=== PATIENT | female | born 1960 | race Caucasian/White ===

== ENCOUNTER 2019-08-30 21:20 | Inpatient (IN) | payer OTHER ==
[~2019-08-30] VITALS: Ht 139.7 cm; Wt 63.9 kg
[~2019-08-30 21:20] MED LIST: AUGM PO; NOCURR
[2019-08-30] MEDS ORDERED: TRI115O TP (21:42)
[2019-08-30] MEDS ORDERED: LEVO50 PO (21:42)
[2019-08-30] MEDS ORDERED: ATOR40TA28 PO (21:42)
[2019-08-30] MEDS ORDERED: AMLO5TAB9 PO (21:42)
[2019-08-30] MEDS ORDERED: TIOT185 IH (21:42)
[2019-08-30 23:19] LABS: BASOPHILS % (AUTO) 0.7 % (0.0-2.0); EOSINOPHILS % (AUTO) 3.8 % (1.0-6.0); HEMATOCRIT 54.5 % (36-46); LYMPHOCYTES % (AUTO) 19.4 % (22.0-44.0); MEAN CORPUSCULAR HEMOGLOBIN 33.1 pg (26.0-34.0); MEAN CORPUSCULAR HGB CONC 34.8 G/dL (31.0-37.0); MEAN CORPUSCULAR VOLUME 95 fL (80-100); MONOCYTES # (AUTO) 0.9 K/uL (0.1-1.0); MONOCYTES % (AUTO) 8.7 % (2.0-9.0); NEUTROPHILS # (AUTO) 6.9 K/uL (1.8-7.7); NEUTROPHILS % (AUTO) 67.4 % (40.0-70.0); RED BLOOD CELL COUNT(AUTO) 5.72 MIL/uL (4.00-5.20); RED CELL DISTRIBUTION WIDTH 14.2 % (11.5-14.5)
[2019-08-30 23:25] LABS: CREATININE 1.12 mg/dL (0.60-1.30); POTASSIUM 3.8 mmol/L (3.5-5.1)
[2019-08-30 23:29] LABS: PLATELET COUNT (AUTO) 225 K/uL (150-450); PLATELET MORPHOLOGY COMMENT GIANT PLTS PRESENT
[2019-08-30 23:30] LABS: ALBUMIN 3.8 g/dL (3.4-5.0); BILIRUBIN,TOTAL 0.7 mg/dL (0.1-1.0); TOTAL PROTEIN, SERUM 7.6 g/dL (6.4-8.2)
[2019-08-30] MEDS ORDERED: ONDANSETRON HCL 4 MG/2 ML VIAL IVP ONE (23:30)
[2019-08-30] MEDS ORDERED: MECLIZINE HCL 25 MG TABLET PO ONE (23:30)
[2019-08-30 23:36] LABS: APPEARANCE,URINE CLOUDY (CLEAR); BILIRUBIN,URINE NEGATIVE (NEGATIVE); GLUCOSE, URINE (UA) >=1000 mg/dL (NEGATIVE); KETONES,URINE NEGATIVE (NEGATIVE); LEUKOCYTE ESTERASE ,URINE MODERATE (NEGATIVE); NITRATE,URINE NEGATIVE (NEGATIVE); OCCULT BLOOD,URINE NEGATIVE (NEGATIVE); PH,URINE 6.5 (5.0-8.0); PROTEIN,URINE POS 1+ (NEGATIVE)
[2019-08-30 23:42] LABS: BACTERIA,URINE Many /HPF (None Seen); RBC,URINE 0-2 /HPF (0-2); SQUAMOUS EPITHELIAL CELL,UR Rare /LPF (None Seen); WBC,URINE 26-50 /HPF (0-5)
[2019-08-31] MEDS ORDERED: CefTRIAXone 1 GM/DEXTROSE 50 ML IV ONE
[2019-08-31] MEDS ORDERED: ONDANSETRON HCL 4 MG/2 ML VIAL IVP PRN ×2 (01:30→11:45)
[2019-08-31] MEDS ORDERED: 0.9% SODIUM CHLORIDE 10 ML SYRINGE IVP PRN (01:30)
[2019-08-31] MEDS ORDERED: ACETAMINOPHEN 325 MG TABLET PO PRN ×2 (01:30→11:45)
[2019-08-31 04:55] VITALS: BP 150/85
[2019-08-31] MEDS ORDERED: INFLUENZA VIRUS VACCINE QVS 2019-20 (3YR+)/PF 60 MCG/0.5 ML SYRINGE IM ONE (05:00)
[2019-08-31] MEDS ORDERED: PNEUMOCOCCAL VACCINE POLYVALENT 0.5 ML VIAL [PPSV23] IM ONE (05:00)
[2019-08-31 07:36] VITALS: BP 147/84
[2019-08-31] MEDS ORDERED: MORPHINE SULFATE 2 MG/ML SYRINGE IVP PRN (11:45)
[2019-08-31] MEDS ORDERED: HYDROCODONE/ACETAMINOPHEN 5-325 MG TABLET PO PRN (11:45)
[2019-08-31] MEDS ORDERED: MECLIZINE HCL 25 MG TABLET PO PRN (11:45)
[2019-08-31] MEDS ORDERED: BISACODYL 10 MG RECTAL RECTAL SUPPOSITORY PR PRN (11:45)
[2019-08-31] MEDS ORDERED: ZOLPIDEM TARTRATE 5 MG TABLET PO PRN (11:45)
[2019-08-31] MEDS ORDERED: MAGNESIUM HYDROXIDE SUSPENSION 30 ML UDCUP PO PRN (11:45)
[2019-08-31] MEDS: AmLODIPine BESYLATE 5 MG TABLET PO SCH (12:08)
[2019-08-31 12:12] VITALS: BP 146/85
[2019-08-31 16:22] VITALS: BP 145/80
[2019-08-31] MEDS: MECLIZINE HCL 25 MG TABLET PO SCH ×2 (16:31→20:38)
[2019-08-31] MEDS: HEPARIN SODIUM,PORCINE 5,000 UNITS/ML VIAL SQ SCH ×2 (16:31→23:06)
[2019-08-31 19:29] VITALS: BP 146/88
[2019-08-31] MEDS: ATORVASTATIN CALCIUM 40 MG TABLET PO SCH (20:37)
[2019-08-31] MEDS: DOCUSATE SODIUM 100 MG CAPSULE PO SCH (20:38)
[2019-08-31] MEDS: CefTRIAXone 1 GM/DEXTROSE 50 ML IV SCH (21:01)
[2019-09-01] VITALS (7 sets, daily range): BP systolic 121–153; BP diastolic 72–93
[2019-09-01] MEDS: LEVOTHYROXINE SODIUM 50 MCG TABLET PO SCH (05:29)
[2019-09-01] MEDS: TIOTROPIUM BROMIDE 18 MCG/INH HANDIHALER [5] IH SCH (09:00)
[2019-09-01] MEDS: DOCUSATE SODIUM 100 MG CAPSULE PO SCH ×2 (09:00→20:51)
[2019-09-01] MEDS: MECLIZINE HCL 25 MG TABLET PO SCH ×3 (09:24→20:51)
[2019-09-01] MEDS: HEPARIN SODIUM,PORCINE 5,000 UNITS/ML VIAL SQ SCH ×3 (09:24→23:16)
[2019-09-01] MEDS: AmLODIPine BESYLATE 5 MG TABLET PO SCH (09:24)
[2019-09-01] MEDS: PANTOPRAZOLE SODIUM 40 MG DR TABLET PO SCH (09:24)
[2019-09-01] MEDS: ATORVASTATIN CALCIUM 40 MG TABLET PO SCH (20:52)
[2019-09-01] MEDS ORDERED: SODIUM CHLORIDE 0.9% 250 ML IV ONE (23:06)
[2019-09-01] MEDS: CefTRIAXone 1 GM/DEXTROSE 50 ML IV SCH (23:12)
[2019-09-02 04:15] VITALS: BP 152/75
[2019-09-02] MEDS: LEVOTHYROXINE SODIUM 50 MCG TABLET PO SCH (05:51)
[2019-09-02 07:25] VITALS: BP 160/80
[2019-09-02] MEDS: TIOTROPIUM BROMIDE 18 MCG/INH HANDIHALER [5] IH SCH (08:40)
[2019-09-02] MEDS: HEPARIN SODIUM,PORCINE 5,000 UNITS/ML VIAL SQ SCH ×2 (08:40→16:00)
[2019-09-02] MEDS: MECLIZINE HCL 25 MG TABLET PO SCH ×2 (08:41→16:00)
[2019-09-02] MEDS: AmLODIPine BESYLATE 5 MG TABLET PO SCH (08:41)
[2019-09-02] MEDS: PANTOPRAZOLE SODIUM 40 MG DR TABLET PO SCH (08:41)
[2019-09-02] MEDS: DOCUSATE SODIUM 100 MG CAPSULE PO SCH (08:41)
[2019-09-02] MEDS ORDERED: GADOBUTROL 1 MMOL/ML 10 ML VIAL IVP ONE (10:13)
[2019-09-02 11:27] VITALS: BP 137/71
[2019-09-02] MEDS ORDERED: MECL-111 PO (12:19)
[2019-09-02] MEDS ORDERED: AMLO5TAB9 PO (12:19)
[2019-09-02] MEDS ORDERED: CEPH-582 PO (12:25)
== END 2019-09-02 17:55 | disposition home or self-care (01) | DRG 111 ==
LOC: EMS 21:21 → 5N 08-31 02:19 → UNDODISIN 09-01 14:05 → 4E 09-01 14:08
PROVIDERS: ADMIT Internal Medicine; ATTEND Internal Medicine
DX: H81.10 Benign paroxysmal vertigo, unspecified ear (principal); E03.9 Hypothyroidism, unspecified; N39.0 Urinary tract infection, site not specified; E78.5 Hyperlipidemia, unspecified; J45.909 Unspecified asthma, uncomplicated; G25.81 Restless legs syndrome; Z87.891 Personal history of nicotine dependence; Z79.899 Other long term (current) drug therapy
CPT/HCPCS: 70450; 70553; 87086; 93005; 93880; 96365; 96375; 97116; 97162; A9585; G0378; J0696; J1644; J2405; J7050

== ENCOUNTER 2020-10-27 15:02 | Emergency (ER) | payer OTHER ==
[~2020-10-27] VITALS: Ht 139.7 cm; Wt 59.1 kg
[~2020-10-27 15:02] MED LIST changes: +AMLO-257 PO; +ATOR40TA28 PO; -AUGM PO; +CEPH-582 PO; +LEVO50 PO; +MECL-160 PO; -NOCURR; +TIOT185 IH; +TRI115O TP
[2020-10-27] MEDS ORDERED: SODIUM CHLORIDE 0.9% 1,000 ML IV ONE ×2 (15:45→16:45)
[2020-10-27] MEDS ORDERED: MORPHINE SULFATE 4 MG/ML SYRINGE IVP ONE ×2 (15:45→19:00)
[2020-10-27] MEDS ORDERED: ONDANSETRON HCL 4 MG/2 ML VIAL IVP ONE (15:45)
[2020-10-27 16:25] LABS: BASOPHILS % (AUTO) 0.6 % (0.0-2.0); EOSINOPHILS % (AUTO) 2.8 % (1.0-6.0); LYMPHOCYTES # (AUTO) 1.9 K/uL (1.0-4.8); LYMPHOCYTES % (AUTO) 15.4 % (22.0-44.0); MEAN CORPUSCULAR HEMOGLOBIN 31.8 pg (26.0-34.0); MEAN CORPUSCULAR HGB CONC 33.9 G/dL (31.0-37.0); MEAN CORPUSCULAR VOLUME 94 fL (80-100); MONOCYTES # (AUTO) 0.9 K/uL (0.1-1.0); MONOCYTES % (AUTO) 7.3 % (2.0-9.0); NEUTROPHILS # (AUTO) 9.3 K/uL (1.8-7.7); NEUTROPHILS % (AUTO) 73.9 % (40.0-70.0); PLATELET COUNT (AUTO) 236 K/uL (150-450); RED BLOOD CELL COUNT(AUTO) 5.99 MIL/uL (4.00-5.20); RED CELL DISTRIBUTION WIDTH 13.5 % (11.5-14.5)
[2020-10-27 16:28] LABS: HEMATOCRIT 56.3 % (36-46)
[2020-10-27 16:30] LABS: HEMOGLOBIN 19.1 g/dL (12.0-16.0)
[2020-10-27 16:33] LABS: CALCIUM, TOTAL 9.4 mg/dL (8.8-10.5); POTASSIUM 4.2 mmol/L (3.5-5.1)
[2020-10-27 16:35] LABS: INR 1.1 (0.9-1.1); PROTHROMBIN TIME 11.3 SEC (9.4-11.6)
[2020-10-27 16:42] LABS: LACTIC ACID 1.7 mmol/L (0.4-2.0)
[2020-10-27 16:48] LABS: ALBUMIN 3.8 g/dL (3.4-5.0); BILIRUBIN,TOTAL 0.6 mg/dL (0.1-1.0); TOTAL PROTEIN, SERUM 7.4 g/dL (6.4-8.2)
[2020-10-27] MEDS ORDERED: IOVERSOL 350 MG/ML 100 ML VIAL ONE (16:49)
[2020-10-27] MEDS ORDERED: SODIUM CHLORIDE 0.9% 100 ML ONE (16:49)
[2020-10-27 18:59] LABS: BASOPHILS % (AUTO) 0.8 % (0.0-2.0); EOSINOPHILS % (AUTO) 2.6 % (1.0-6.0); HEMATOCRIT 52.7 % (36-46); HEMOGLOBIN 18.1 g/dL (12.0-16.0); LYMPHOCYTES % (AUTO) 16.1 % (22.0-44.0); MEAN CORPUSCULAR HEMOGLOBIN 32.3 pg (26.0-34.0); MEAN CORPUSCULAR HGB CONC 34.4 G/dL (31.0-37.0); MEAN CORPUSCULAR VOLUME 94 fL (80-100); NEUTROPHILS # (AUTO) 8.9 K/uL (1.8-7.7); NEUTROPHILS % (AUTO) 72.5 % (40.0-70.0); PLATELET COUNT (AUTO) 223 K/uL (150-450); RED BLOOD CELL COUNT(AUTO) 5.61 MIL/uL (4.00-5.20); RED CELL DISTRIBUTION WIDTH 13.4 % (11.5-14.5)
[2020-10-27 19:05] LABS: APPEARANCE,URINE CLEAR (CLEAR); BILIRUBIN,URINE NEGATIVE (NEGATIVE); GLUCOSE, URINE (UA) 100 mg/dL (NEGATIVE); KETONES,URINE TRACE mg/dL (NEGATIVE); LEUKOCYTE ESTERASE ,URINE NEGATIVE (NEGATIVE); NITRATE,URINE NEGATIVE (NEGATIVE); OCCULT BLOOD,URINE NEGATIVE (NEGATIVE); PROTEIN,URINE SEE CONFIRM (NEGATIVE); UROBILINOGEN,URINE 0.2 mg/dL (<=1.0)
[2020-10-27 19:09] LABS: SULFOSALICYLIC ACID,URINE 1+ (Negative)
[2020-10-27 19:10] LABS: BACTERIA,URINE None Seen /HPF (None Seen); RBC,URINE None Seen /HPF (0-2); SQUAMOUS EPITHELIAL CELL,UR Many /LPF (None Seen); WBC,URINE 0-2 /HPF (0-5)
[2020-10-27] MEDS ORDERED: KETOROLAC TROMETHAMINE 30 MG/ML VIAL IVP ONE (20:00)
[2020-10-27 21:00] VITALS: BP 150/105
== END 2020-10-27 21:45 | disposition home or self-care (01) ==
LOC: EMS 15:06
DX: R10.32 Left lower quadrant pain (principal); F17.210 Nicotine dependence, cigarettes, uncomplicated; Z79.899 Other long term (current) drug therapy
CPT/HCPCS: 36415; 74177; 80053; 81001; 83605; 83690; 84484; 85025; 85610; 96361; 96374; 96375; 96376; 99285; J1885; J2270; J2405; J7030; J7050; Q9967

== ENCOUNTER 2021-06-01 00:57 | Emergency (ER) | payer OTHER ==
[~2021-06-01] VITALS: Ht 139.7 cm; Wt 63.6 kg
[2021-06-01 04:00] VITALS: BP 136/94
[2021-06-01] MEDS ORDERED: DiphenhydrAMINE HCL 25 MG CAPSULE PO ONE (04:15)
== END 2021-06-01 04:39 | disposition home or self-care (01) ==
LOC: EDUNIT# 00:57 → EMS 00:58
DX: B35.4 Tinea corporis (principal); F17.210 Nicotine dependence, cigarettes, uncomplicated; I10 Essential (primary) hypertension; F12.90 Cannabis use, unspecified, uncomplicated; Z79.899 Other long term (current) drug therapy
CPT/HCPCS: 99282; Z7502; Z7610

== ENCOUNTER 2021-10-22 06:51 | Emergency (ER) | payer OTHER ==
[~2021-10-22] VITALS: Ht 139.7 cm; Wt 59.1 kg
[2021-10-22 06:55] VITALS: BP 160/94
[2021-10-22] MEDS ORDERED: CLOTRIMAZOLE 1% 15 GM CREAM TP ONE (07:30)
[2021-10-22] MEDS ORDERED: DiphenhydrAMINE HCL 25 MG CAPSULE PO ONE (07:45)
[2021-10-22] MEDS ORDERED: PERMETHRIN 5% 60 GM CREAM TP ONE (07:45)
[2021-10-22] MEDS ORDERED: FAMOTIDINE 20 MG TABLET PO ONE (07:45)
== END 2021-10-22 08:27 | disposition home or self-care (01) ==
LOC: EMS 06:55
DX: B35.4 Tinea corporis (principal); B86 Scabies; I10 Essential (primary) hypertension; F12.90 Cannabis use, unspecified, uncomplicated; F17.290 Nicotine dependence, other tobacco product, uncomplicated; Z79.899 Other long term (current) drug therapy
CPT/HCPCS: 99284; Z7502; Z7610

== ENCOUNTER 2022-09-23 14:46 | Emergency (ER) | payer OTHER ==
[~2022-09-23] VITALS: Ht 139.7 cm; Wt 59.1 kg
[2022-09-23 18:15] VITALS: BP 150/97
[2022-09-23] MEDS ORDERED: HYDROCODONE/ACETAMINOPHEN 5-325 MG TABLET PO ONE (18:45)
[2022-09-23] MEDS ORDERED: KETOROLAC TROMETHAMINE 60 MG/2 ML VIAL IM ONE (18:45)
== END 2022-09-23 19:55 | disposition home or self-care (01) ==
LOC: EMS 14:54
DX: T14.8XXA Other injury of unspecified body region, initial encounter (principal); S20.219A Contusion of unspecified front wall of thorax, initial encounter; E11.9 Type 2 diabetes mellitus without complications; I10 Essential (primary) hypertension; F17.210 Nicotine dependence, cigarettes, uncomplicated; F12.90 Cannabis use, unspecified, uncomplicated; W11.XXXA Fall on and from ladder, initial encounter; Y93.89 Activity, other specified; Y92.89 Other specified places as the place of occurrence of the external cause; Y99.8 Other external cause status
CPT/HCPCS: 99284; 70450; 82962; 71250; 72125; 93005; 96372; J1885

== ENCOUNTER 2022-10-19 11:41 | Emergency (ER) | payer OTHER ==
[~2022-10-19] VITALS: Ht 139.7 cm; Wt 52.3 kg
[2022-10-19] MEDS ORDERED: BLOOD PRESSURE MED PO (11:52)
[2022-10-19] MEDS ORDERED: METF-1211 PO (11:52)
[2022-10-19 11:53] VITALS: BP 172/105
[2022-10-19 12:07] LABS: COVID AG,FIA SOURCE NASAL SWAB
[2022-10-19 12:41] LABS: INFLUENZA TYPE B NEGATIVE FOR TYPE B (NEGATIVE)
[2022-10-19 12:47] LABS: INFLUENZA TYPE A POSITIVE FOR TYPE A (NEGATIVE)
== END 2022-10-19 13:41 | disposition left against medical advice (07) ==
LOC: EMS 12:02
DX: R05.9 Cough, unspecified (principal); R09.89 Other specified symptoms and signs involving the circulatory and respiratory systems; Z20.822 Contact with and (suspected) exposure to COVID-19; Z53.21 Procedure and treatment not carried out due to patient leaving prior to being seen by health care provider
CPT/HCPCS: 87804

== ENCOUNTER 2022-10-20 23:44 | Emergency (ER) | payer OTHER ==
[~2022-10-20] VITALS: Ht 139.7 cm; Wt 57.9 kg
[~2022-10-20 23:44] MED LIST changes: -AMLO-257 PO; -ATOR40TA28 PO; +BLOOD PRESSURE MED PO; -CEPH-582 PO; -LEVO50 PO; -MECL-160 PO; +METF-1211 PO; -TIOT185 IH; -TRI115O TP
[2022-10-21] MEDS ORDERED: ACETAMINOPHEN 500 MG TABLET PO ONE (02:15)
[2022-10-21 02:41] LABS: COVID AG,FIA SOURCE NASAL SWAB
[2022-10-21 02:48] LABS: BASOPHILS % (AUTO) 0.3 % (0.0-2.0); EOSINOPHILS % (AUTO) 0.7 % (1.0-6.0); HEMATOCRIT 44.6 % (36-46); HEMOGLOBIN 15.1 g/dL (12.0-16.0); LYMPHOCYTES # (AUTO) 1.3 K/uL (1.0-4.8); LYMPHOCYTES % (AUTO) 10.7 % (22.0-44.0); MEAN CORPUSCULAR HEMOGLOBIN 31.1 pg (26.0-34.0); MEAN CORPUSCULAR HGB CONC 33.8 G/dL (31.0-37.0); MEAN CORPUSCULAR VOLUME 92 fL (80-100); MONOCYTES # (AUTO) 1.1 K/uL (0.1-1.0); MONOCYTES % (AUTO) 8.9 % (2.0-9.0); NEUTROPHILS # (AUTO) 9.5 K/uL (1.8-7.7); NEUTROPHILS % (AUTO) 79.4 % (40.0-70.0); PLATELET COUNT (AUTO) 213 K/uL (150-450); RED BLOOD CELL COUNT(AUTO) 4.85 MIL/uL (4.00-5.20); RED CELL DISTRIBUTION WIDTH 13.8 % (11.5-14.5)
[2022-10-21 02:53] LABS: CALCIUM, TOTAL 8.5 mg/dL (8.8-10.5); CREATININE 0.95 mg/dL (0.60-1.30); POTASSIUM 4.2 mmol/L (3.5-5.1)
[2022-10-21 03:00] LABS: BILIRUBIN,TOTAL 0.5 mg/dL (0.1-1.0); TOTAL PROTEIN, SERUM 7.3 g/dL (6.4-8.2)
[2022-10-21 03:00] LABS: INFLUENZA TYPE B NEGATIVE FOR TYPE B (NEGATIVE)
[2022-10-21 03:01] LABS: LACTIC ACID 1.4 mmol/L (0.4-2.0)
[2022-10-21 03:03] LABS: INFLUENZA TYPE A POSITIVE FOR TYPE A (NEGATIVE)
[2022-10-21] MEDS ORDERED: SODIUM CHLORIDE 0.9% 1,000 ML IV ONE (04:45)
[2022-10-21] MEDS ORDERED: OSELTAMIVIR PHOSPHATE 75 MG CAPSULE PO ONE (04:45)
[2022-10-21 05:04] LABS: APPEARANCE,URINE CLEAR (CLEAR); BILIRUBIN,URINE NEGATIVE (NEGATIVE); GLUCOSE, URINE (UA) >=1000 mg/dL (NEGATIVE); LEUKOCYTE ESTERASE ,URINE NEGATIVE (NEGATIVE); NITRATE,URINE NEGATIVE (NEGATIVE); OCCULT BLOOD,URINE NEGATIVE (NEGATIVE); PH,URINE 5.5 (5.0-8.0); PROTEIN,URINE 30-70 mg/dL (NEGATIVE); SPECIFIC GRAVITIY, URINE 1.023 (1.003-1.030); UROBILINOGEN,URINE <=1.0 mg/dL (<=1.0)
[2022-10-21 05:06] LABS: BACTERIA,URINE Many /HPF (None Seen); RBC,URINE 0-2 /HPF (0-2); SQUAMOUS EPITHELIAL CELL,UR Few /LPF (None Seen)
[2022-10-21 05:46] VITALS: BP 138/88
[2022-10-21] MEDS ORDERED: OSEL75 PO (06:03)
== END 2022-10-21 06:45 | disposition home or self-care (01) ==
LOC: EMS 23:48
DX: J10.1 Influenza due to other identified influenza virus with other respiratory manifestations (principal); E11.9 Type 2 diabetes mellitus without complications; I10 Essential (primary) hypertension; J18.9 Pneumonia, unspecified organism; F17.210 Nicotine dependence, cigarettes, uncomplicated; F12.90 Cannabis use, unspecified, uncomplicated; Z20.822 Contact with and (suspected) exposure to COVID-19
CPT/HCPCS: 99285; 87426; 80053; 81001; 83605; 85025; 87040; 87804; 36415; 87086; 87186; 96360; 71045; 93005; J7030

== ENCOUNTER 2022-10-28 15:08 | Emergency (ER) | payer OTHER ==
[~2022-10-28] VITALS: Ht 139.7 cm; Wt 59.1 kg
[~2022-10-28 15:08] MED LIST changes: +OSEL75 PO
[2022-10-28 15:11] VITALS: BP 123/87
[2022-10-28 15:19] LABS: COVID AG,FIA SOURCE NASAL SWAB
[2022-10-28 16:31] LABS: INFLUENZA TYPE A NEGATIVE FOR TYPE A (NEGATIVE); INFLUENZA TYPE B NEGATIVE FOR TYPE B (NEGATIVE)
[2022-10-28 16:42] LABS: BASOPHILS % (AUTO) 0.3 % (0.0-2.0); EOSINOPHILS % (AUTO) 1.7 % (1.0-6.0); HEMATOCRIT 42.9 % (36-46); HEMOGLOBIN 14.1 g/dL (12.0-16.0); LYMPHOCYTES # (AUTO) 1.9 K/uL (1.0-4.8); LYMPHOCYTES % (AUTO) 11.5 % (22.0-44.0); MEAN CORPUSCULAR HEMOGLOBIN 30.3 pg (26.0-34.0); MEAN CORPUSCULAR HGB CONC 32.9 G/dL (31.0-37.0); MEAN CORPUSCULAR VOLUME 92 fL (80-100); MONOCYTES # (AUTO) 1.5 K/uL (0.1-1.0); NEUTROPHILS # (AUTO) 13.1 K/uL (1.8-7.7); NEUTROPHILS % (AUTO) 77.5 % (40.0-70.0); PLATELET COUNT (AUTO) 455 K/uL (150-450); RED BLOOD CELL COUNT(AUTO) 4.66 MIL/uL (4.00-5.20); RED CELL DISTRIBUTION WIDTH 13.3 % (11.5-14.5)
[2022-10-28 16:57] LABS: ANION GAP 13 mmol/L (8-16); CALCIUM, TOTAL 9.3 mg/dL (8.8-10.5); CARBON DIOXIDE 22 mmol/L (22-29); CHLORIDE 99 mmol/L (98-107); CREATININE 0.78 mg/dL (0.60-1.30); GLUCOSE,RANDOM 189 mg/dL (70-110); POTASSIUM 3.8 mmol/L (3.5-5.1); SODIUM SERUM 134 mmol/L (136-145); UREA NITROGEN, BLOOD 9 mg/dL (7-18)
[2022-10-28 16:58] LABS: GLOMERULAR FILTR. RATE CALC > 60 mL/min (>60)
[2022-10-28 17:03] LABS: ALANINE AMINOTRANSFERASE 21 U/L (12-78); ALBUMIN 2.6 g/dL (3.4-5.0); ALKALINE PHOSPHATASE 203 U/L (46-116); ASPARTATE AMINOTRANSFERASE 15 U/L (15-37); BILIRUBIN,TOTAL 0.3 mg/dL (0.1-1.0); TOTAL PROTEIN, SERUM 8.3 g/dL (6.4-8.2)
[2022-10-28] MEDS ORDERED: BENZ-70 PO (18:17)
== END 2022-10-28 18:38 | disposition home or self-care (01) ==
LOC: EMS 15:14
DX: B34.9 Viral infection, unspecified (principal); E11.9 Type 2 diabetes mellitus without complications; I10 Essential (primary) hypertension; F17.210 Nicotine dependence, cigarettes, uncomplicated; F12.90 Cannabis use, unspecified, uncomplicated; Z20.822 Contact with and (suspected) exposure to COVID-19
CPT/HCPCS: 71045; 80053; 85025; 87804; 99284; 36415-L1; 36415-TC